=== PATIENT | male | born 1995 | race Caucasian/White ===

== ENCOUNTER 2018-04-20 09:28 | Emergency (ER) | payer OTHER ==
[~2018-04-20] VITALS: Ht 177.8 cm; Wt 74.8 kg
== END 2018-04-20 14:16 | disposition home or self-care (01) ==
LOC: ER 09:28
DX: R07.89 Other chest pain (principal); F06.4 Anxiety disorder due to known physiological condition

== ENCOUNTER 2018-04-25 09:08 | Emergency (ER) | payer OTHER ==
[~2018-04-25] VITALS: Ht 177.8 cm; Wt 74.8 kg
== END 2018-04-25 12:28 | disposition home or self-care (01) ==
LOC: ER 09:08
DX: M94.0 Chondrocostal junction syndrome [Tietze] (principal); R07.89 Other chest pain

== ENCOUNTER 2019-05-10 10:42 | Emergency (ER) | payer OTHER ==
[~2019-05-10] VITALS: Ht 180.3 cm; Wt 76.7 kg
== END 2019-05-10 13:12 | disposition home or self-care (01) ==
LOC: ER 10:42
DX: B33.8 Other specified viral diseases (principal); B96.0 Mycoplasma pneumoniae [M. pneumoniae] as the cause of diseases classified elsewhere

== ENCOUNTER 2021-08-29 08:52 | Outpatient (CLI) | payer OTHER | END 2021-08-29 09:02 | disposition home or self-care (01) | LOC: RAD 08:52 | PROVIDERS: ATTEND Orthopaedic Surgery | DX: S62.336A Displaced fracture of neck of fifth metacarpal bone, right hand, initial encounter for closed fracture (principal) ==